=== PATIENT | female | born 2000 | race Caucasian/White ===

== ENCOUNTER 2020-05-22 17:19 | Emergency (ER) | payer OTHER ==
[~2020-05-22] VITALS: Ht 170.2 cm; Wt 63.5 kg
--- NOTE | 2020-05-22 17:40 | NUR ---
ED Nurse Note:pt. came with lower back pain for 3 days hx of scoliosis, been seen by chyropractor
[2020-05-22] MEDS ORDERED: NORCO 5-325 TA1 EAC1 ORAL (17:41)
[2020-05-22] MEDS ORDERED: IBUPROFEN600 M1 ORAL (17:41)
[2020-05-22] MEDS ORDERED: ROBAXIN-750750 MG PO (17:41)
[2020-05-22] MEDS ORDERED: LIDODERM700 M1 TOPIC (17:41)
--- NOTE | 2020-05-22 17:44 | Emergency Room Report ---
History of Present Illness General Chief Complaint: Back Pain-No Injury Source: Patient Present Illness HPI Disclaimer: Please note that this report is being documented using [employer] technology. This can lead to erroneous entry secondary to incorrect interpretation by the dictating instrument. HPI: 19-year-old female with history of scoliosis presents for evaluation of back pain. 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 She has pain on the right side it is nonradiating. Worse with bending and twisting motion. Denies pain in the lower back, urinary retention, fecal incontinence, lower extremity weakness, numbness, tingling or changes in strength sensation otherwise. There is no injury reported. She follows with a chiropractor and seen earlier today but pain persist. Allergies: Coded Allergies: AMOXICILLIN (Verified Allergy, Unknown, 05/22/20) COVID-19 Screening Contact w/high risk pt: No Recent Travel to affected area: No Experienced COVID-19 symptoms?: No COVID-19 Testing performed SEAFOOD SPECIALIST: No Patient History Now: No Nursing Documentation-[facility] Past Medical History: No History, Except For History Of Psychiatric Problem: Yes - depression Review of Systems All Other Systems: negative except mentioned in HPI Physical Exam Vital Signs Date Time Temp Pulse Resp B/P (MAP) Pulse Ox O2 Delivery O2 Flow Rate FiO2 05/22/20 17:23 98.4 102 18 102/69 (80) 98 Room Air General: Awake and alert, no acute distress HEENT: NC/AT. EOMI. Resp: Normal work of breathing Skin: Intact. No abrasions, laceration or rash over the exposed skin MSK: Normal tone and bulk. Moving all extremities. No obvious deformity. Neuro: Awake and alert. Mentating appropriately Spine: Dextroscoliosis. Tenderness palpation the paraspinal region in the mid thoracic region. There is no significant midline tenderness in the cervical, thoracic or lumbosacral spine. No step-off or deformity. Medical Decision Making Diagnostic Impression: Primary Impression: Back spasm Additional Impression: Scoliosis ER Course 19-year-old female with history of scoliosis presents for evaluation of back pain after heavy lifting 3 days ago. No trauma reported. Exam is most consistent with a thoracic strain or paraspinal muscle spasm. No red flags of cauda equina syndrome or spinal epidural abscess. Do not believe the patient requires emergent labs or imaging at this time. Will treat with lidocaine patch , muscle relaxer, brief pain medication and continued NSAIDs. Counseled on appropriate dosages of Tylenol and Motrin as well. She will follow-up with her PMD. Discussed reasons to return to the emergency department. Last Vital Signs Date Time Temp Pulse Resp B/P (MAP) Pulse Ox O2 Delivery O2 Flow Rate FiO2 05/22/20 17:23 98.4 102 18 102/69 (80) 98 Room Air Disposition: HOME, SELF-CARE Condition: Stable Scripts Ibuprofen* (MOTRIN*) 600 Mg Tablet 600 MG ORAL Q6H PRN for For Pain, #30 TAB 0 Refills Prov: Trav Escalera MD 05/22/20 Hydrocodone Bit/Acetaminophen 5-325* (NORCO 5-325 TABLET*) 1 Each Tablet 1 TAB ORAL Q6H PRN for FOR PAIN, #10 TAB 0 Refills Prov: Trav Escalera MD 05/22/20 Methocarbamol* (ROBAXIN-750*) 750 Mg Tablet 750 MG PO QID, #28 TAB 0 Refills Prov: Trav Escalera MD 05/22/20 Lidocaine Patch* (Lidoderm Patch*) 1 Each Adh..patch 1 PATCH TOPIC DAILY, #30 PATCH Patch(es) may remain in place for up to 12 hours in any 24-hour period. Prov: Tarv Escalera MD 05/22/20 Referrals: [facility] Departure Forms: Return to Work Work Restrictions: No Heavy Lifting Patient Instructions: Thoracic Strain Additional Instructions: Please follow-up with your primary care doctor in the next 1 to 3 days to discuss this emergency department visit and for reevaluation. If you have any new or worsening symptoms please return to the emergency department for reevaluation. Please note that this report is being documented using [employer] technology. This can lead to erroneous entry secondary to incorrect interpretation by the dictating instrument. Trav Escalera MD May 22, 2020 17:44
[2020-05-22 17:50] VITALS: BP 102/69
--- NOTE | 2020-05-22 17:58 | NUR ---
ED Nurse Note: Pt cleared by health care Provider for discharge. DC instructions/prescription was given and explained to pt and verbalized understanding of teachings. All medical devices such as ID band removed. Pt is AAO x4, ambulatory and left with all personal belongings.
[2020-05-22 17:59] VITALS: BP 102/69
== END 2020-05-22 17:55 | disposition home or self-care (01) ==
LOC: EMR 17:35
DX: M62.830 Muscle spasm of back (principal); M41.9 Scoliosis, unspecified; Z88.0 Allergy status to penicillin; F32.9 Major depressive disorder, single episode, unspecified
CPT/HCPCS: 99282